=== PATIENT | male | born 2000 | race Asian ===

== ENCOUNTER 2021-11-24 00:36 | Emergency (ER) | payer MEDICAID ==
[~2021-11-24] VITALS: Ht 170.2 cm; Wt 108.2 kg
[2021-11-24 01:54] LABS: BASOPHILS % (AUTO) 0.8 % (0.0-2.0); EOSINOPHILS % (AUTO) 3.5 % (1.0-6.0); HEMOGLOBIN 14.3 g/dL (13.5-17.5); LYMPHOCYTES # (AUTO) 2.3 K/uL (1.0-4.8); LYMPHOCYTES % (AUTO) 24.6 % (22.0-44.0); MEAN CORPUSCULAR HEMOGLOBIN 29.4 pg (26.0-34.0); MEAN CORPUSCULAR HGB CONC 34.1 G/dL (31.0-37.0); MEAN CORPUSCULAR VOLUME 86 fL (80-100); MONOCYTES # (AUTO) 0.8 K/uL (0.1-1.0); MONOCYTES % (AUTO) 8.9 % (2.0-9.0); NEUTROPHILS # (AUTO) 5.7 K/uL (1.8-7.7); NEUTROPHILS % (AUTO) 62.2 % (40.0-70.0); PLATELET COUNT (AUTO) 250 K/uL (150-450); RED BLOOD CELL COUNT(AUTO) 4.88 MIL/uL (4.50-5.90); RED CELL DISTRIBUTION WIDTH 12.7 % (11.5-14.5)
[2021-11-24 02:47] LABS: ANION GAP 7 mmol/L (8-16); CALCIUM, TOTAL 10.2 mg/dL (8.8-10.5); CARBON DIOXIDE 29 mmol/L (22-29); CHLORIDE 99 mmol/L (98-107); CREATININE 1.01 mg/dL (0.60-1.30); GLOMERULAR FILTR. RATE CALC > 60 mL/min (>60); GLUCOSE,RANDOM 117 mg/dL (70-110); POTASSIUM 3.9 mmol/L (3.5-5.1); SODIUM SERUM 135 mmol/L (136-145); UREA NITROGEN, BLOOD 16 mg/dL (7-18)
[2021-11-24 02:53] LABS: ALANINE AMINOTRANSFERASE 78 U/L (12-78); ALBUMIN 4.1 g/dL (3.4-5.0); ALKALINE PHOSPHATASE 85 U/L (46-116); ASPARTATE AMINOTRANSFERASE 30 U/L (15-37); BILIRUBIN,TOTAL 0.3 mg/dL (0.1-1.0); TOTAL PROTEIN, SERUM 8.3 g/dL (6.4-8.2)
[2021-11-24 03:59] VITALS: BP 125/77
[2021-11-24] MEDS ORDERED: ACETAMINOPHEN 325 MG TABLET PO ONE (04:00)
[2021-11-24] MEDS ORDERED: IBUPROFEN 400 MG TABLET PO ONE (04:00)
== END 2021-11-24 04:13 | disposition home or self-care (01) ==
LOC: EMS 00:36
DX: R07.89 Other chest pain (principal)
CPT/HCPCS: 71045; 80053; 83880; 84484; 85025; 93005; 99285; 36415-L1; 36415-TC

== ENCOUNTER 2023-02-13 19:45 | Emergency (ER) | payer MEDICAID ==
[~2023-02-13] VITALS: Ht 172.7 cm; Wt 90.0 kg
[2023-02-13] MEDS ORDERED: LIDOCAINE 2%/EPI 1:200,000/PF 10 ML VIAL SQ ONE (22:30)
[2023-02-13 22:56] VITALS: BP 132/89
== END 2023-02-13 23:14 | disposition home or self-care (01) ==
LOC: EMS 19:46
DX: I83.91 Asymptomatic varicose veins of right lower extremity (principal)
CPT/HCPCS: 12001; 99282; J2001; Z7502